=== PATIENT | male | born 1950 | race American Indian/Alaskan Native ===

== ENCOUNTER 2020-01-31 22:15 | Emergency (ER) | payer MEDICARE ==
[2020-01-31] MEDS ORDERED: LORazepam 2 MG/ML VIAL IM ONE (22:44)
--- NOTE | 2020-01-31 22:52 | Emergency Department Report ---
ED General Adult HPI - General Stated complaint: AMS Time Seen by Provider: 01/31/20 22:36 Source: EMS Mode of arrival: Ambulatory Limitations: Altered Mental Status (Nonverbal since November) - History of Present Illness Initial comments: Mr. Retana is a 69-year-old male with history of CVA, hypertension, COPD, brain aneurysm with previous hospitalization for pneumonia respiratory failure requiring PEG tube placement at [facility] in November. He was then admitted at [facility] from January 02 to discharged today on January 30 for evaluation and treatment of dysphasia subacute CVA H. pylori metabolic encephalopathy. Has been nonverbal since November. Additional diagnoses include severe sepsis with aspiration pneumonia and influenza A. Patient was discharged today to [facility]. Niece at the bedside was very frustrated with care at [facility]. She called EMS because she insisted that the patient diaper is changed immediately. She explained that the patient's mental status is at baseline. -: This evening (No changes regarding physical and mental health patient) Consistency: constant Improves with: none Worsens with: none Associated Symptoms: denies other symptoms ED Review of Systems ROS: Stated complaint: AMS Other details as noted in HPI Comment: Unobtainable due to pts medical conditions (Encephalopathy since November) ED Past Medical Hx - Past Medical History Previous Medical History?: Yes Hx Hypertension: Yes Hx CVA: Yes Hx COPD: Yes Additional medical history: Brain aneurysm - Social History Substance Use Type: Alcohol, Cocaine ED Physical Exam - General General appearance: alert, cachectic, other (Restless) - Head Head exam: Present: atraumatic, normocephalic - Eye Eye exam: Present: normal appearance. Absent: scleral icterus, conjunctival injection - ENT ENT exam: Present: mucous membranes moist - Neck Neck exam: Present: normal inspection - Respiratory Respiratory exam: Present: normal lung sounds bilaterally. Absent: respiratory distress, wheezes, rales, rhonchi - Cardiovascular Cardiovascular Exam: Present: regular rate, normal rhythm, normal heart sounds. Absent: systolic murmur, diastolic murmur, rubs, gallop - GI/Abdominal GI/Abdominal exam: Present: soft, normal bowel sounds. Absent: distended, tenderness, guarding, rebound - Rectal Rectal exam: Present: deferred - Extremities Exam Extremities exam: Present: normal inspection - Back Exam Back exam: Present: normal inspection - Neurological Exam Neurological exam: Present: altered - Psychiatric Psychiatric exam: Present: flat affect, other (Nonverbal) - Skin Skin exam: Present: warm, dry, intact, normal color. Absent: rash ED Course Vital Signs 01/31/20 22:47 Temperature 97.7 F Pulse Rate 57 L Respiratory 20 Rate Blood Pressure 157/79 O2 Sat by Pulse 97 Oximetry ED Medical Decision Making - Radiology Data Radiology results: report reviewed CT head no acute abnormality prominent chronic and age-related changes, no evidence of large vessel territory ischemic injury hemorrhage or mass - Medical Decision Making Mrs. Call presents from [facility]. He was discharged today from [facility]. Family member at the bedside appears to be upset regarding his multiple diagnoses and rapid decline over the past 2 months. His encephalopathy appears to be multifactorial including CVA and prolonged illness including severe sepsis and pneumonia. He has been nonverbal since November. I strongly encouraged family member to consider hospice palliative care. It appeared that he received palliative care consult while admitted at [facility]. Family member did not quite understand that this state could be permanent. CT head obtained to rule out intracranial hemorrhage according to request of family member at the bedside. He is discharged back to [facility]. Critical care attestation.: If time is entered above; I have spent that time in minutes in the direct care of this critically ill patient, excluding procedure time. ED Disposition Clinical Impression: Encephalopathy chronic Disposition: [id number] ANOTHER TYPE HLTHCARE Is pt being admited?: No Does the pt Need Aspirin: No Condition: Stable Referrals: PRIMARY CARE, [Primary Care Provider] - 3-5 Days
--- NOTE | 2020-02-01 00:11 | Cat Scan Report ---
CT BRAIN: 01/31/2020 INDICATION / CLINICAL INFORMATION: MAIN: encephalopathy, AMS. COMPARISON: None available. FINDINGS: BRAIN/INTRACRANIAL STRUCTURES: Unenhanced CT images of the brain demonstrate no evidence of acute int racranial abnormality. Ventricles and sulci are prominent in size, consistent with prominent diffuse cerebral atrophy. Extensive chronic white matter hypoattenuation is present throughout the cerebral hemispheric white m atter. There is no CT evidence of acute large vessel territory ischemic injury, hemorrhage, or mass. There a re no abnormal extra-axial fluid collections. Atherosclerotic vascular calcifications are present in the distal internal carotid arteries and verte bral arteries. EXTRACRANIAL STRUCTURES: Unremarkable. IMPRESSION: No acute abnormality. Prominent chronic and age-related changes. All CT scans at this location are performed using dose reduction to ALARA by means of automated expos ure control. Signer Name: Orlando Marte MD Signed: 02/01/2020 12:06 AM Workstation Name: [id number]
[2020-02-01 03:14] VITALS: BP 147/84
== END 2020-02-01 02:00 | disposition other institution (70) ==
LOC: ED 22:15
DX: G93.49 Other encephalopathy (principal); I10 Essential (primary) hypertension; J44.9 Chronic obstructive pulmonary disease, unspecified; F14.10 Cocaine abuse, uncomplicated
CPT/HCPCS: 70450; 96372; 99285; J2060